=== PATIENT | male | born 1955 | race African-American/Black ===

== ENCOUNTER 2021-11-08 12:15 | Emergency (ER) | payer SELFPAY ==
[2021-11-08 12:52] LABS: #Eosinphils 0.3 10x3/uL (0.0-0.5); #Monocytes 0.8 10x3/uL (0.0-1.1); #Neutrophils 3.2 10x3/uL (1.5-8.4); %Basophils 0.2 % (0.0-2.0); %Eosinophils 4.7 % (0.0-6.0); %Lymphocytes 29.1 % (18.0-47.0); %Monocytes 13.4 % (0.0-10.0); %Neutrophils 52.1 % (40.0-75.0); Hemoglobin 12.5 g/dL (13.5-17.5); Mean Corpuscular HGB CONC 32.6 g/dL (32.0-36.0); Mean Corpuscular Hemoglobin 26.8 pg (27.0-33.0); Mean Corpuscular Volume 82.2 fl (81.2-95.1); Mean Platelet Volume 8.1 fl (7.4-10.4); Platelet Count 361 10x3/uL (150-450); RBC Distribution Width 13.8 % (11.5-14.5); Red Blood Cell (RBC) Count 4.66 10x6/uL (4.32-5.72); White Blood Cell (WBC) Count 6.2 10x3/uL (3.5-10.5)
[2021-11-08] MEDS ORDERED: Cefepime 2 GM VIAL ONE (13:02)
[2021-11-08 13:26] LABS: ALT (SGPT) 17 U/L (8-55); AST (SGOT) 23 U/L (5-34); Albumin 3.9 g/dL (3.4-4.8); Alkaline Phosphatase 146 U/L (40-110); Anion Gap 14 mmol/L (10-20); BUN (Urea Nitrogen) 15 mg/dL (8.4-25.7); Bilirubin, Total 0.5 mg/dL (0.2-1.2); Calc. Creatinine Clearance 0 mL/min (70-130); Calcium 9.6 mg/dL (7.8-10.44); Carbon Dioxide 22 mmol/L (23-31); Chloride 107 mmol/L (98-107); Globulin 4.3 g/dL (2.4-3.5); Glucose 103 mg/dL (80-115); Lipase 16 U/L (8-78); Potassium 4.1 mmol/L (3.5-5.1); Protein, Total 8.2 g/dL (5.8-8.1); Sodium 139 mmol/L (136-145)
[2021-11-08 14:30] LABS: Bilirubin Neg (Negative); Blood, Urine 250 (Negative); Clarity Cloudy (Clear); Glucose, Urine (Dipstick) Normal (Negative); Ketone, Urine 5 mg/dL (Negative); Leukocyte 500 (Negative); Nitrite Positive (Negative); Protein, Urine (Dipstick) 100 mg/dl (Neg-Trace); Urobilinogen Normal mg/dL (Less than 2); pH, Urine 6.5 (5.0-9.0)
[2021-11-08 14:39] LABS: Bacteria/HPF 3+ HPF (None Seen); RBC/HPF 21-50 HPF (0-3); Squamous Epithelial 0-3 HPF (0-3); WBC/HPF 21-50 HPF (0-3)
[2021-11-09 08:30] LABS: SARS-CoV-2 PCR by NAA DETECTED (NotDetected)
== END 2021-11-08 19:30 | disposition short-term general hospital (02) ==
LOC: CSHERS 12:15
DX: A41.89 Other specified sepsis (principal); U07.1 COVID-19; R59.0 Localized enlarged lymph nodes; N39.0 Urinary tract infection, site not specified; E11.9 Type 2 diabetes mellitus without complications; E05.90 Thyrotoxicosis, unspecified without thyrotoxic crisis or storm; I10 Essential (primary) hypertension; F17.210 Nicotine dependence, cigarettes, uncomplicated
CPT/HCPCS: 51702; 71045; 74177; 80053; 81003; 81015; 83605; 83690; 84484; 85025; 87040; 93005; 96365; 96366; 96367; J0692; J3370; U0003; U0005

== ENCOUNTER 2022-04-08 08:58 | Emergency (ER) | payer MEDICARE, MEDICAID ==
[~2022-04-08 08:58] MED LIST: Iopamidol 300 61% 100 ML VIAL FS ONE
[2022-04-08 09:35] LABS: #Eosinphils 0.2 10x3/uL (0.0-0.5); #Monocytes 0.7 10x3/uL (0.0-1.1); #Neutrophils 3.9 10x3/uL (1.5-8.4); %Basophils 0.2 % (0.0-2.0); %Eosinophils 3.9 % (0.0-6.0); %Lymphocytes 16.8 % (18.0-47.0); %Monocytes 12.5 % (0.0-10.0); %Neutrophils 66.4 % (40.0-75.0); Hemoglobin 10.7 g/dL (13.5-17.5); Mean Corpuscular HGB CONC 33.4 g/dL (32.0-36.0); Mean Corpuscular Volume 77.9 fl (81.2-95.1); Mean Platelet Volume 7.9 fl (7.4-10.4); Platelet Count 324 10x3/uL (150-450); RBC Distribution Width 14.5 % (11.5-14.5); Red Blood Cell (RBC) Count 4.11 10x6/uL (4.32-5.72); White Blood Cell (WBC) Count 5.8 10x3/uL (3.5-10.5)
[2022-04-08 09:57] LABS: ALT (SGPT) 7 U/L (8-55); AST (SGOT) 13 U/L (5-34); Albumin 3.8 g/dL (3.4-4.8); Alkaline Phosphatase 169 U/L (40-110); Anion Gap 16 mmol/L (10-20); BUN (Urea Nitrogen) 9 mg/dL (8.4-25.7); Bilirubin, Total 0.6 mg/dL (0.2-1.2); Calc. Creatinine Clearance 0 mL/min (70-130); Calcium 9.1 mg/dL (7.8-10.44); Carbon Dioxide 21 mmol/L (23-31); Chloride 102 mmol/L (98-107); Estimated GFR 101; Globulin 3.7 g/dL (2.4-3.5); Glucose 90 mg/dL (80-115); Lipase 4 U/L (8-78); Potassium 4.2 mmol/L (3.5-5.1); Protein, Total 7.5 g/dL (5.8-8.1); Sodium 135 mmol/L (136-145)
[2022-04-08 11:02] LABS: Bilirubin Neg (Negative); Blood, Urine 25 (Negative); Clarity Clear (Clear); Glucose, Urine (Dipstick) Normal (Negative); Ketone, Urine 150 mg/dL (Negative); Leukocyte 500 (Negative); Nitrite Negative (Negative); Protein, Urine (Dipstick) 30 mg/dl (Neg-Trace); Urobilinogen Normal mg/dL (Less than 2); pH, Urine 6.5 (5.0-9.0)
[2022-04-08] MEDS ORDERED: Morphine 4 MG/ML VIAL ONE (11:05)
[2022-04-08] MEDS ORDERED: Ondansetron PF 4 MG/2 ML Vial ONE (11:05)
[2022-04-08 11:32] LABS: WBC/HPF Greater than 50 HPF (0-3)
[2022-04-08 11:33] LABS: Bacteria/HPF 2+ HPF (None Seen); Squamous Epithelial 0-3 HPF (0-3)
[2022-04-08 11:34] LABS: Calcium Oxalate Crystals Rare HPF (None Seen); Mucous/LPF 2+ LPF (<2+)
== END 2022-04-08 12:45 | disposition home or self-care (01) ==
LOC: CSHERS 08:58
DX: C61 Malignant neoplasm of prostate (principal); C79.51 Secondary malignant neoplasm of bone; E11.9 Type 2 diabetes mellitus without complications; I10 Essential (primary) hypertension; F17.210 Nicotine dependence, cigarettes, uncomplicated; Z79.899 Other long term (current) drug therapy
CPT/HCPCS: 36415; 71045; 74177; 80053; 81003; 81015; 83690; 84484; 85025; 96374; 96375; J2270; J2405; Q9967

== ENCOUNTER 2022-11-02 08:26 | Emergency (ER) | payer MEDICARE, OTHER ==
[2022-11-02] MEDS ORDERED: Morphine 4 MG/ML VIAL ONE (08:47)
[2022-11-02] MEDS ORDERED: Ketorolac Tromethamine 30 MG/ML VIAL ONE (08:48)
[2022-11-02] MEDS ORDERED: Ondansetron PF 4 MG/2 ML Vial ONE (08:51)
[2022-11-02 09:10] LABS: ALT (SGPT) 10 U/L (8-55); AST (SGOT) 14 U/L (5-34); Albumin 3.7 g/dL (3.4-4.8); Alkaline Phosphatase 212 U/L (40-110); Anion Gap 12 mmol/L (10-20); BUN (Urea Nitrogen) 8 mg/dL (8.4-25.7); Bilirubin, Total 0.4 mg/dL (0.2-1.2); CK (CPK) 80 U/L (30-200); Calc. Creatinine Clearance 0 mL/min (70-130); Calcium 9.7 mg/dL (7.8-10.44); Carbon Dioxide 26 mmol/L (23-31); Chloride 103 mmol/L (98-107); Estimated GFR 96; Globulin 4.9 g/dL (2.4-3.5); Glucose 95 mg/dL (80-115); Potassium 4.2 mmol/L (3.5-5.1); Protein, Total 8.6 g/dL (5.8-8.1); Sodium 137 mmol/L (136-145)
[2022-11-02 09:11] LABS: #Eosinphils 0.4 10x3/uL (0.0-0.5); #Monocytes 0.6 10x3/uL (0.0-1.1); #Neutrophils 4.1 10x3/uL (1.5-8.4); %Basophils 0.3 % (0.0-2.0); %Eosinophils 5.4 % (0.0-6.0); %Lymphocytes 25.4 % (18.0-47.0); %Monocytes 8.4 % (0.0-10.0); %Neutrophils 60.2 % (40.0-75.0); Hemoglobin 10.9 g/dL (13.5-17.5); Mean Corpuscular HGB CONC 33.2 g/dL (32.0-36.0); Mean Corpuscular Hemoglobin 26.5 pg (27.0-33.0); Mean Corpuscular Volume 79.8 fl (81.2-95.1); Mean Platelet Volume 7.8 fl (7.4-10.4); Platelet Count 424 10x3/uL (150-450); RBC Distribution Width 14.6 % (11.5-14.5); Red Blood Cell (RBC) Count 4.11 10x6/uL (4.32-5.72); White Blood Cell (WBC) Count 6.8 10x3/uL (3.5-10.5)
[2022-11-02 09:29] LABS: Bilirubin Neg (Negative); Blood, Urine 25 (Negative); Clarity Slightly Cloudy (Clear); Glucose, Urine (Dipstick) Normal (Negative); Ketone, Urine Negative (Negative); Leukocyte 500 (Negative); Nitrite Positive (Negative); Protein, Urine (Dipstick) 15 mg/dl (Neg-Trace); Urobilinogen Normal mg/dL (Less than 2)
[2022-11-02 09:42] LABS: Bacteria/HPF 2+ HPF (None Seen); RBC/HPF 0-3 HPF (0-3); Squamous Epithelial 0-3 HPF (0-3); WBC/HPF 21-50 HPF (0-3)
[2022-11-02] MEDS ORDERED: cefTRIAXone\\ROCEPHIN 2 GM VIAL ONE (10:56)
== END 2022-11-02 18:51 ==
LOC: CSHERS 08:26
DX: G89.3 Neoplasm related pain (acute) (chronic) (principal); N30.90 Cystitis, unspecified without hematuria; I10 Essential (primary) hypertension; F17.210 Nicotine dependence, cigarettes, uncomplicated
CPT/HCPCS: 36415; 71045; 72170; 80053; 81003; 81015; 82550; 85025; 87040; 87086; 96374; 96375; J0696; J1885; J2270; J2405

== ENCOUNTER 2023-01-13 13:57 | Inpatient (IN) | payer MEDICARE, MEDICAID ==
[~2023-01-13 13:57] MED LIST changes: +Iopamidol 370 76% 100 ML VIAL ONE
[2023-01-13] MEDS ORDERED: Morphine 4 MG/ML VIAL ONE (14:55)
[2023-01-13 15:01] LABS: #Eosinphils 0.1 10x3/uL (0.0-0.5); #Monocytes 0.5 10x3/uL (0.0-1.1); #Neutrophils 2.7 10x3/uL (1.5-8.4); %Basophils 0.2 % (0.0-2.0); %Eosinophils 1.2 % (0.0-6.0); %Lymphocytes 34.2 % (18.0-47.0); %Monocytes 10.1 % (0.0-10.0); %Neutrophils 53.9 % (40.0-75.0); Hemoglobin 11.4 g/dL (13.5-17.5); Mean Corpuscular HGB CONC 32.5 g/dL (32.0-36.0); Mean Platelet Volume 9.1 fl (7.4-10.4); Platelet Count 180 10x3/uL (150-450); RBC Distribution Width 17.9 % (11.5-14.5); Red Blood Cell (RBC) Count 4.39 10x6/uL (4.32-5.72); White Blood Cell (WBC) Count 5.1 10x3/uL (3.5-10.5)
[2023-01-13 15:20] LABS: ALT (SGPT) 65 U/L (8-55); AST (SGOT) 38 U/L (5-34); Alkaline Phosphatase 302 U/L (40-110); Anion Gap 16 mmol/L (10-20); BUN (Urea Nitrogen) 11 mg/dL (8.4-25.7); Bilirubin, Total 0.7 mg/dL (0.2-1.2); Calc. Creatinine Clearance 0 mL/min (70-130); Calcium 9.7 mg/dL (7.8-10.44); Carbon Dioxide 26 mmol/L (23-31); Chloride 102 mmol/L (98-107); Estimated GFR 95; Globulin 3.7 g/dL (2.4-3.5); Glucose 111 mg/dL (80-115); Magnesium 2.1 mg/dL (1.6-2.6); Protein, Total 7.7 g/dL (5.8-8.1); Sodium 140 mmol/L (136-145)
[2023-01-13 15:47] LABS: Bilirubin Neg (Negative); Blood, Urine 150 (Negative); Clarity Cloudy (Clear); Glucose, Urine (Dipstick) Normal (Negative); Ketone, Urine Negative (Negative); Leukocyte 500 (Negative); Nitrite Positive (Negative); Protein, Urine (Dipstick) 100 mg/dl (Neg-Trace)
[2023-01-13 15:59] LABS: WBC/HPF 21-50 HPF (0-3)
[2023-01-13 16:00] LABS: Bacteria/HPF 4+ HPF (None Seen); Squamous Epithelial 0-3 HPF (0-3)
[2023-01-13] MEDS ORDERED: cefTRIAXone (ROCEPHIN) 1 GM VIAL ONE (17:01)
[2023-01-13 20:52] VITALS: BMI 25.3
[2023-01-13] MEDS ORDERED: VANCOMYCIN 1.75 GM/350 ML BAG IVPB SCH (21:45)
[2023-01-13] MEDS ORDERED: Melatonin 3 MG TAB PO PRN (21:58)
[2023-01-13] MEDS ORDERED: fentaNYL 50 mcg/hour Patch TD SCH (22:00)
[2023-01-13] MEDS ORDERED: Sodium Chloride 0.9% 1,000 ML IV SCH (22:00)
[2023-01-13] MEDS ORDERED: Vancomycin 1.5 GRAM/300 ML BAG 1.5 GM in Premix Bag 1 BAG IVPB SCH (22:15)
[2023-01-13] MEDS: HYDROcodone/Acetaminophen 5/325 mg Tablet PO PRN (22:58)
[2023-01-14 03:37] LABS: Amphetamine Not Detected (NotDetected); Barbiturates Screen Not Detected (NotDetected); Benzodiazepine Screen Not Detected (NotDetected); Cocaine Metabolite Screen Not Detected (NotDetected); Methadone Not Detected (NotDetected); Methamphetamine Not Detected (NotDetected); Opiate Screen Detected (NotDetected); Oxycodone Screen Not Detected (NotDetected); Phencyclidine (PCP) Not Detected (NotDetected); THC/Cannabinoid Screen Not Detected (NotDetected); Tricyclic Screen Detected (NotDetected)
[2023-01-14 04:46] LABS: #Eosinphils 0.1 10x3/uL (0.0-0.5); #Monocytes 0.5 10x3/uL (0.0-1.1); #Neutrophils 1.5 10x3/uL (1.5-8.4); %Basophils 0.2 % (0.0-2.0); %Eosinophils 1.2 % (0.0-6.0); %Lymphocytes 48.6 % (18.0-47.0); %Monocytes 13.2 % (0.0-10.0); %Neutrophils 36.3 % (40.0-75.0); Hemoglobin 10.4 g/dL (13.5-17.5); Mean Corpuscular HGB CONC 30.6 g/dL (32.0-36.0); Mean Corpuscular Hemoglobin 26.3 pg (27.0-33.0); Mean Corpuscular Volume 85.9 fl (81.2-95.1); Mean Platelet Volume 9.5 fl (7.4-10.4); Platelet Count 144 10x3/uL (150-450); RBC Distribution Width 18.6 % (11.5-14.5); Red Blood Cell (RBC) Count 3.96 10x6/uL (4.32-5.72)
[2023-01-14 06:26] LABS: Anion Gap 14 mmol/L (10-20); BUN (Urea Nitrogen) 12 mg/dL (8.4-25.7); Calc. Creatinine Clearance 95 mL/min (70-130); Calcium 8.7 mg/dL (7.8-10.44); Carbon Dioxide 23 mmol/L (23-31); Chloride 106 mmol/L (98-107); Estimated GFR 96; Glucose 109 mg/dL (80-115); Magnesium 2.1 mg/dL (1.6-2.6); Potassium 3.8 mmol/L (3.5-5.1); Sodium 139 mmol/L (136-145)
[2023-01-14] MEDS: HYDROcodone/Acetaminophen 5/325 mg Tablet PO PRN (06:35)
[2023-01-14] MEDS ORDERED: VANCOMYCIN 1.25 GM/250 ML BAG 1.25 GM in Premix Bag 1 BAG IVPB SCH (10:00)
[2023-01-14] MEDS: Senokot 8.6 MG TAB PO SCH ×2 (10:45→20:01)
[2023-01-14] MEDS: Dexamethasone 4 MG TAB PO SCH (10:46)
[2023-01-14] MEDS: Vancomycin HCl 1 GM in Sodium Chloride 0.9% 250 ML 250 ML IVPB SCH ×2 (10:46→21:56)
[2023-01-14] MEDS ORDERED: cefTRIAXone\\ROCEPHIN 1 GM in Sodium Chloride 0.9% 100 ML IVPB SCH (17:00)
[2023-01-14] MEDS ORDERED: QUEtiapine 25 MG TAB PO SCH (21:00)
[2023-01-15] MEDS: Dexamethasone 4 MG TAB PO SCH (09:13)
[2023-01-15] MEDS: Senokot 8.6 MG TAB PO SCH (09:13)
[2023-01-15 09:54] LABS: Vancomycin, Trough 8.5 ug/mL
[2023-01-15] MEDS ORDERED: VANCOMYCIN 1.25 GM/250 ML BAG 1.25 GM in Premix Bag 1 BAG IVPB SCH (11:00)
[2023-01-15 14:30] VITALS: BP 137/74; TEMP 98.1
== END 2023-01-15 16:20 | disposition hospice, home (50) | DRG 698 ==
LOC: CSHERS 13:57 → CSHTELE 20:30
PROVIDERS: ADMIT Family Medicine; ATTEND Family Medicine
DX: T83.89XA Other specified complication of genitourinary prosthetic devices, implants and grafts, initial encounter (principal); I26.99 Other pulmonary embolism without acute cor pulmonale; I82.403 Acute embolism and thrombosis of unspecified deep veins of lower extremity, bilateral; N39.0 Urinary tract infection, site not specified; Z51.5 Encounter for palliative care; Z66 Do not resuscitate; I10 Essential (primary) hypertension; G89.29 Other chronic pain; F32.A Depression, unspecified; F17.210 Nicotine dependence, cigarettes, uncomplicated; E78.5 Hyperlipidemia, unspecified; F14.90 Cocaine use, unspecified, uncomplicated; Y83.8 Other surgical procedures as the cause of abnormal reaction of the patient, or of later complication, without mention of misadventure at the time of the procedure; Z79.899 Other long term (current) drug therapy; Z85.46 Personal history of malignant neoplasm of prostate
CPT/HCPCS: 36415; 71275; 74177; 80048; 80053; 80202; 80306; 81003; 81015; 83605; 83735; 83880; 85025; 85379; 87040; 87077; 87086; 87149; 87186; 93005; 93010; 93306; 93970; 96372; 96374; 96375; J0696; J1650; J2270; J3370; J3490; J7050; J8540; Q9967